=== PATIENT | female | born 1950 | race Caucasian/White ===

== ENCOUNTER → 2024-03-20 | Outpatient (CLI) | payer OTHER | END | disposition home or self-care (01) | LOC: RESCLI 08:41 | PROVIDERS: ATTEND Family Medicine | DX: I42.0 Dilated cardiomyopathy (principal); I48.0 Paroxysmal atrial fibrillation; E03.9 Hypothyroidism, unspecified; Z95.0 Presence of cardiac pacemaker; K21.9 Gastro-esophageal reflux disease without esophagitis; E78.5 Hyperlipidemia, unspecified; I10 Essential (primary) hypertension; F41.1 Generalized anxiety disorder; Z98.890 Other specified postprocedural states; Z79.899 Other long term (current) drug therapy ==